=== PATIENT | female | born 2005 ===

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

== ENCOUNTER → 2024-06-08 | Outpatient (REF) | LOC: M EMP 08:53 | PROVIDERS: ATTEND Family Medicine | DX: Z11.52 Encounter for screening for COVID-19 (principal) ==

== ENCOUNTER → 2025-01-25 | Outpatient (REF) | payer BC | LOC: M LAB REF 17:06 | PROVIDERS: ATTEND Physician Assistant | DX: J02.9 Acute pharyngitis, unspecified (principal) ==